=== PATIENT | female | born 1940 | race Asian ===

== ENCOUNTER 2019-10-19 01:42 | Inpatient (IN) | payer MEDICAID ==
[~2019-10-19] VITALS: Ht 160 cm; Wt 54.4 kg
[2019-10-19 01:56] VITALS: Ht 160 cm; Wt 54.4 kg
[2019-10-19 03:48] LABS: RED CELL DISTRIBUTION WIDTH 13.7 % (11.5-14.5)
[2019-10-19 04:21] LABS: PLATELET COUNT 679 x10^3mcL (130-400)
[2019-10-19 04:23] LABS: BAND NEUTROPHIL 1 % (0-10); MONOCYTE 7 % (0-7); SEGMENTED NEUTROPHILS 89 % (37-75)
[2019-10-19 04:24] LABS: ALKALINE PHOSPHATASE 90 U/L (46-116); ALT/SGPT 29 U/L (14-59); AST/SGOT 29 U/L (15-37); BILIRUBIN TOTAL 0.7 mg/dL (0.20-1.00); CALCIUM 8.2 mg/dL (8.5-10.1); CARBON DIOXIDE 24.2 mmol/L (21-32); CHLORIDE SERUM 88 mmol/L (98-107); GLUCOSE SERUM 115 mg/dL (74-106); PATH REVIEW for HEMA YES; PLATELET MORPHOLOGY PLATELETS INCREASED; POTASSIUM SERUM 4.2 mmol/L (3.5-5.1); TOTAL PROTEIN, SERUM 6.9 g/dL (6.4-8.2); rbc morphology (normal/abnorm) NORMAL (NORMAL)
[2019-10-19 04:26] LABS: ALBUMIN 2.5 g/dL (3.4-5.0)
[2019-10-19 04:34] LABS: SODIUM SERUM 123 mmol/L (136-145)
[2019-10-19 07:26] LABS: MAGNESIUM 2.1 mg/dL (1.8-2.4); PHOSPHOROUS 3.5 mg/dL (2.5-4.9)
[2019-10-19 07:29] LABS: CHOLESTEROL/HDL RATIO 5.7
[2019-10-19 07:38] LABS: FREE T4 1.33 ng/dL (0.76-1.46); FREE THYROXINE INDEX 2.5 ug/dL (1.4-4.5); T4(THYROXINE) 5.9 ug/dL (4.7-13.3)
[2019-10-19 08:00] LABS: T3 TOTAL 0.57 ng/mL
[2019-10-19 13:31] VITALS: BP 155/61
[2019-10-19 14:00] VITALS: BP 154/65
[2019-10-19 16:58] VITALS: BP 163/80
[2019-10-19 17:56] VITALS: BP 137/81
[2019-10-19 21:30] VITALS: BP 115/55
[2019-10-20 06:03] VITALS: BP 120/49
[2019-10-20 07:13] LABS: BASOPHIL % 0.1 % (0-2); RED CELL DISTRIBUTION WIDTH 14.3 % (11.5-14.5)
[2019-10-20 07:27] LABS: CALCIUM 7.7 mg/dL (8.5-10.1); CARBON DIOXIDE 27.5 mmol/L (21-32); CHLORIDE SERUM 95 mmol/L (98-107); CREATININE SERUM 0.7 mg/dL (0.6-1.0); GLUCOSE SERUM 102 mg/dL (74-106); MAGNESIUM 2.1 mg/dL (1.8-2.4); PHOSPHOROUS 3.1 mg/dL (2.5-4.9); POTASSIUM SERUM 3.4 mmol/L (3.5-5.1); SODIUM SERUM 129 mmol/L (136-145)
[2019-10-20 08:56] VITALS: BP 124/55
[2019-10-20 10:18] LABS: PLATELET COUNT 580 x10^3mcL (130-400)
[2019-10-20 12:01] VITALS: BP 118/55
[2019-10-20 17:28] VITALS: BP 128/71
[2019-10-20 21:32] VITALS: BP 145/73
[2019-10-21 05:29] VITALS: BP 140/67
[2019-10-21 09:00] VITALS: BP 108/75
[2019-10-21 09:18] LABS: CALCIUM 7.5 mg/dL (8.5-10.1); CARBON DIOXIDE 26.2 mmol/L (21-32); CHLORIDE SERUM 94 mmol/L (98-107); CREATININE SERUM 0.7 mg/dL (0.6-1.0); GLUCOSE SERUM 91 mg/dL (74-106); MAGNESIUM 2.1 mg/dL (1.8-2.4); PHOSPHOROUS 3.1 mg/dL (2.5-4.9); POTASSIUM SERUM 3.5 mmol/L (3.5-5.1); SODIUM SERUM 132 mmol/L (136-145)
[2019-10-21 09:37] LABS: BASOPHIL % 0.4 % (0-2); RED CELL DISTRIBUTION WIDTH 14.3 % (11.5-14.5)
[2019-10-21 11:28] LABS: PLATELET COUNT 629 x10^3mcL (130-400)
[2019-10-21 13:04] VITALS: BP 166/79
[2019-10-21 17:43] VITALS: BP 151/77
[2019-10-21 21:09] VITALS: BP 159/82
[2019-10-22 06:08] VITALS: BP 148/69
[2019-10-22 08:11] LABS: BASOPHIL % 0.6 % (0-2); RED CELL DISTRIBUTION WIDTH 13.4 % (11.5-14.5)
[2019-10-22 08:51] VITALS: BP 155/78
[2019-10-22 09:10] LABS: CALCIUM 7.6 mg/dL (8.5-10.1); CHLORIDE SERUM 94 mmol/L (98-107); CREATININE SERUM 0.5 mg/dL (0.6-1.0); GLUCOSE SERUM 95 mg/dL (74-106); PHOSPHOROUS 2.7 mg/dL (2.5-4.9); POTASSIUM SERUM 3.2 mmol/L (3.5-5.1); SODIUM SERUM 129 mmol/L (136-145)
[2019-10-22 10:14] LABS: PLATELET COUNT 580 x10^3mcL (130-400)
[2019-10-22 13:56] VITALS: BP 152/92
[2019-10-22 17:34] VITALS: BP 151/76
[2019-10-22 21:33] VITALS: BP 115/66
[2019-10-23 05:49] VITALS: BP 125/71
[2019-10-23 06:48] LABS: BASOPHIL % 0.6 % (0-2); RED CELL DISTRIBUTION WIDTH 14.1 % (11.5-14.5)
[2019-10-23 06:56] LABS: PLATELET COUNT 495 x10^3mcL (130-400)
[2019-10-23 07:01] LABS: CALCIUM 7.9 mg/dL (8.5-10.1); CARBON DIOXIDE 29.6 mmol/L (21-32); CHLORIDE SERUM 95 mmol/L (98-107); CREATININE SERUM 0.6 mg/dL (0.6-1.0); GLUCOSE SERUM 102 mg/dL (74-106); MAGNESIUM 2.1 mg/dL (1.8-2.4); POTASSIUM SERUM 3.7 mmol/L (3.5-5.1); SODIUM SERUM 129 mmol/L (136-145)
[2019-10-23 08:00] VITALS: BP 179/83
[2019-10-23 13:42] VITALS: BP 164/95
[2019-10-23 17:02] VITALS: BP 116/59
[2019-10-23 19:40] VITALS: BP 125/63
[2019-10-24 05:47] VITALS: BP 142/71
[2019-10-24 07:07] LABS: BASOPHIL % 1.3 % (0-2); RED CELL DISTRIBUTION WIDTH 14.1 % (11.5-14.5)
[2019-10-24 07:25] LABS: PLATELET COUNT 577 x10^3mcL (130-400)
[2019-10-24 07:56] LABS: CALCIUM 7.8 mg/dL (8.5-10.1); CARBON DIOXIDE 30.8 mmol/L (21-32); CHLORIDE SERUM 95 mmol/L (98-107); CREATININE SERUM 0.6 mg/dL (0.6-1.0); GLUCOSE SERUM 95 mg/dL (74-106); MAGNESIUM 2.2 mg/dL (1.8-2.4); POTASSIUM SERUM 3.7 mmol/L (3.5-5.1); SODIUM SERUM 131 mmol/L (136-145)
[2019-10-24 09:38] VITALS: BP 160/93
[2019-10-24 13:25] VITALS: BP 147/74
[2019-10-24 17:37] VITALS: BP 135/67
[2019-10-24 20:30] VITALS: BP 166/93
[2019-10-24 22:00] VITALS: BP 155/71
[2019-10-25 05:00] VITALS: BP 134/63
[2019-10-25 07:01] LABS: BASOPHIL % 1.8 % (0-2); RED CELL DISTRIBUTION WIDTH 13.7 % (11.5-14.5)
[2019-10-25 07:05] LABS: CALCIUM 7.4 mg/dL (8.5-10.1); CARBON DIOXIDE 27.9 mmol/L (21-32); CHLORIDE SERUM 90 mmol/L (98-107); CREATININE SERUM 0.5 mg/dL (0.6-1.0); GLUCOSE SERUM 99 mg/dL (74-106)
[2019-10-25 07:08] LABS: PLATELET COUNT 527 x10^3mcL (130-400)
[2019-10-25 07:10] LABS: POTASSIUM SERUM 2.8 mmol/L (3.5-5.1); SODIUM SERUM 124 mmol/L (136-145)
[2019-10-25 09:31] VITALS: BP 154/84
[2019-10-25 12:55] VITALS: BP 157/76
[2019-10-25 17:58] VITALS: BP 144/69
[2019-10-25 22:15] VITALS: BP 125/67
[2019-10-26 05:41] VITALS: BP 135/77
[2019-10-26 08:02] LABS: RED CELL DISTRIBUTION WIDTH 14.4 % (11.5-14.5)
[2019-10-26 08:03] LABS: BASOPHIL % 2.1 % (0-2); PLATELET COUNT 496 x10^3mcL (130-400)
[2019-10-26 08:05] LABS: CALCIUM 7.7 mg/dL (8.5-10.1); CARBON DIOXIDE 27.9 mmol/L (21-32); CHLORIDE SERUM 96 mmol/L (98-107); CREATININE SERUM 0.6 mg/dL (0.6-1.0); GLUCOSE SERUM 94 mg/dL (74-106); POTASSIUM SERUM 4.1 mmol/L (3.5-5.1); SODIUM SERUM 131 mmol/L (136-145)
[2019-10-26 08:25] VITALS: BP 115/63
[2019-10-26 08:35] VITALS: BP 148/78
[2019-10-26 12:57] VITALS: BP 143/85
[2019-10-26] MEDS ORDERED: FLA500 PO (13:10)
[2019-10-26] MEDS ORDERED: LEVAQUIN500 M1 PO (13:10)
[2019-10-26] MEDS ORDERED: LAC PO (13:15)
[2019-10-26 14:55] VITALS: BP 143/85
== END 2019-10-26 16:31 | disposition home or self-care (01) | DRG 710 ==
LOC: ED 01:42 → DU 04:58
PROVIDERS: Family Medicine; Student in an Organized Health Care Education/Training Program; Surgery; ADMIT Internal Medicine; ATTEND Internal Medicine
PROC: 0D9Q0ZZ Drainage of Anus, Open Approach (ICD-10-PCS; principal; 2019-10-19 09:30)
DX: A41.9 Sepsis, unspecified organism (principal); E43 Unspecified severe protein-calorie malnutrition; E87.8 Other disorders of electrolyte and fluid balance, not elsewhere classified; E86.0 Dehydration; M86.8X5 Other osteomyelitis, thigh; E87.1 Hypo-osmolality and hyponatremia; L02.31 Cutaneous abscess of buttock; K61.0 Anal abscess; M47.898 Other spondylosis, sacral and sacrococcygeal region; D47.3 Essential (hemorrhagic) thrombocythemia; Z88.2 Allergy status to sulfonamides; Z68.21 Body mass index [BMI] 21.0-21.9, adult
CPT/HCPCS: 83880; 84439; 85060; 94150; 97116-GP; 97530-GP; G0378; J0696; J2405; J2704; J3010; J3370; J3480; J3490; J7030; J7040; J7060; J7120; Q0092; Q9967